=== PATIENT | male | born 1950 | race Caucasian/White ===

== ENCOUNTER 2016-09-09 09:06 | Emergency (ER) | payer OTHER ==
[2016-09-09 09:17] VITALS: BP 130/93; PULSE 78; RESP 16; TEMP 98.3; O2SAT 97
--- NOTE | 2016-09-09 09:55 | ED PDOC ---
Arrival/HPI - General Chief Complaint: Cough, Cold, Congestion Time Seen by Provider: 09/09/16 09:39 Historian: Patient - History of Present Illness Narrative History of Present Illness (Text): 09/09/16 09:52 66 year old male with a past medical history that includes hypertension presents to the emergency department with dry cough and generalized body aches for the past few days. Denies congestion. No other complaints at this time. Patient explains he is from [place]. Time/Duration: < week Symptom Onset: Gradual Symptom Course: Unchanged Modifying Factors (Text): None Associated Symptoms (Text): None Past Medical History - Provider Review Nursing Documentation Reviewed: Yes - Travel History If Yes, travel location?: [facility], [facility], [facility] - Infectious Disease Hx of Infectious Diseases: None - Cardiac Hx Hypertension: Yes - HEENT Hx Cataracts: Yes - Psychiatric Hx Substance Use: No Family/Social History - Physician Review Nursing Documentation Reviewed: Yes Family/Social History: Unknown Family HX Smoking Status: Former Smoker Hx Alcohol Use: Yes Frequency of alcohol use: Socially Hx Substance Use: No Allergies/Home Meds Allergies/Adverse Reactions: Allergies No Known Allergies Allergy (Verified 09/09/16 09:18) Home Medications: Home Meds Medication Instructions Recorded Confirmed Lisinopril [Zestril] 20 mg PO DAILY 09/09/16 09/09/16 Review of Systems - Physician Review All systems were reviewed & negative as marked: Yes - Review of Systems Respiratory: Cough (dry). absent: SOB Cardiovascular: absent: Chest Pain Gastrointestinal: absent: Nausea, Vomiting Musculoskeletal: Arthralgias Physical Exam Vital Signs Reviewed: Yes Vital Signs Temp Pulse Resp BP Pulse Ox 09/09/16 09:11 98.3 F 78 16 130/93 H 97 Temperature: Afebrile Blood Pressure: Normal Pulse: Regular Respiratory Rate: Normal Appearance: Positive for: Well-Appearing, Non-Toxic, Comfortable Pain Distress: None Mental Status: Positive for: Alert and Oriented X 3 - Systems Exam Head: Present: Atraumatic, Normocephalic Pupils: Present: PERRL Extroacular Muscles: Present: EOMI Conjunctiva: Present: Normal Mouth: Present: Moist Mucous Membranes Neck: Present: Normal Range of Motion Respiratory/Chest: Present: Good Air Exchange. No: Respiratory Distress, Accessory Muscle Use Cardiovascular: Present: Regular Rate and Rhythm, Normal S1, S2. No: Murmurs Abdomen: Present: Normal Bowel Sounds. No: Tenderness, Distention, Peritoneal Signs Back: Present: Normal Inspection Upper Extremity: Present: Normal Inspection. No: Cyanosis, Edema Lower Extremity: Present: Normal Inspection. No: Edema Neurological: Present: GCS=15, CN II-XII Intact, Speech Normal Skin: Present: Warm, Dry, Normal Color. No: Rashes Psychiatric: Present: Alert, Oriented x 3, Normal Insight, Normal Concentration Medical Decision Making ED Course and Treatment: Impression: 66 year old male with a past medical history that includes hypertension presents to the emergency department with dry cough and generalized body aches for the past few days. Differential Diagnosis included but are not limited to: Cough r/o pneumonia Plan: -- CXR -- Reassess and disposition Progress Notes: 09/09/16 10:42 Chest x-ray read by me shows questionable infiltrate in right lung. Will discharge with Azitrhomycin. Instructed patient to follow up with PMD or return to the ER if symptoms worsen. Patient agrees with plan. Patient stable for discharge. All questions answered. - RAD Interpretation Radiology Orders: 09/09/16 09:58 CXR [CHEST TWO VIEWS (PA/LAT)] [RAD] Stat - Medication Orders Current Medication Orders: Discontinued Medications Azithromycin (Zithromax) 500 mg PO STAT STA PRN Reason: Protocol Stop: 09/09/16 10:32 Last Admin: 09/09/16 10:41 Dose: 500 MG - Scribe Statement The provider has reviewed the documentation as recorded by the Karlene Arizmendi Provider Scribe Attestation: All medical record entries made by the Karlene were at my direction and personally dictated by me. I have reviewed the chart and agree that the record accurately reflects my personal performance of the history, physical exam, medical decision making, and the department course for this patient. I have also personally directed, reviewed, and agree with the discharge instructions and disposition. Disposition/Present on Arrival - Present on Arrival Any Indicators Present on Arrival: No History of DVT/PE: No History of Uncontrolled Diabetes: No Urinary Catheter: No History of Decub. Ulcer: No History Surgical Site Infection Following: None - Disposition Have Diagnosis and Disposition been Completed?: Yes Diagnosis: Pneumonia Disposition: HOME/ ROUTINE Disposition Time: 10:40 Patient Plan: Discharge Condition: GOOD Discharge Instructions (ExitCare): Community Acquired Pneumonia (DC) Additional Instructions: Mr. Lugo, thank you for letting us take care of you today. Your provider was Dr. Cotto. You were treated for Pneumonia. The emergency medical care you received today was directed at your acute symptoms. If you were prescribed any medication, please fill it and take as directed. It may take several days for your symptoms to resolve. Return to the Emergency Department if your symptoms worsen, do not improve, or if you have any other problems. Please contact your doctor or call one of the physicians/clinics you have been referred to that are listed on the Patient Visit Information form that is included in your discharge packet. Bring any paperwork you were given at discharge with you along with any medications you are taking to your follow up visit. Our treatment cannot replace ongoing medical care by a primary care provider (PCP) outside of the emergency department. Thank you for allowing the [facility] team to be part of your care today. If you had an X-Ray or CT scan: A Radiologist will review the ED reading if any change in treatment is needed we will contact you. If you had a blood, urine, or wound culture: It will take several days for the results, if any change in treatment is needed we will contact you. If you had an STI test: It will take 48 hours for the results. Please call after 1 week if you have not heard back. Prescriptions: Azithromycin [Z-Shimon] 250 mg PO DAILY #4 tab Referrals: Bekah John MD [Staff Provider] - Follow up with primary Forms: WORK NOTE
--- NOTE | 2016-09-09 12:06 | RAD ---
HISTORY: cough r/o pna COMPARISON: None TECHNIQUE: Chest PA and lateral FINDINGS: LUNGS: The lungs are well inflated. There is bibasilar atelectasis. There is no focal consolidation. PLEURA: No significant pleural effusion identified. No pneumothorax apparent. CARDIOVASCULAR: Normal. OSSEOUS STRUCTURES: No significant abnormalities. VISUALIZED UPPER ABDOMEN: Normal. OTHER FINDINGS: None. IMPRESSION: No active pulmonary disease. Bibasilar atelectasis.
== END 2016-09-09 10:44 | disposition home or self-care (01) ==
LOC: ED 09:06
DX: J18.9 Pneumonia, unspecified organism (principal); Z87.891 Personal history of nicotine dependence